=== PATIENT | male | born 1990 | race Caucasian/White ===

== ENCOUNTER → 2020-03-01 13:27 | Outpatient (BNVA) | payer SELFPAY | PROVIDERS: Family Provider Family Medicine; PCP Family Medicine; Visit Provider Nurse Practitioner | DX: J02.9 Acute pharyngitis, unspecified (principal) | CPT/HCPCS: 87071; 87880 ==

== ENCOUNTER 2020-03-14 14:24 | Emergency (ER) | payer SELFPAY ==
[2020-03-14 14:48] VITALS: BP 144/84; PULSE 96; RESP 18; TEMP 36.5; O2SAT 98; BMI 33.3
--- NOTE | 2020-03-14 15:26 | ED_ITS ---
HPI - Allergic Reaction General: Chief complaint: Allergic Reaction Stated complaint: allergic rxn Time Seen by Provider: 03/14/20 15:02 History of Present Illness: HPI narrative: Patient had a possible gas on his right arm he does not remember anything but he looked down he said he can had a bite later and then he said he thought his tongue started swelling if the arm felt numb now is doing fine took a Benadryl has no problems MD complaint: other (Insect bite) Onset (ago): hour(s) Exposure: insect bite Associated symptoms: Reports tongue swelling and other (Numbness right arm where the bite was); Deny abdominal pain, nausea or vomiting Severity: mild Treatment prior to arrival: benadryl Review of Systems Narrative: Patient had history of allergic reaction to wasp tingling is located. He thought maybe got stung again today even though he did not feel anything. Said after he noticed a red spot on his arm he thought his tongue started to swell and that his right arm was feel numb he took a Benadryl he said he is feeling fine now Const: Denies: fever(s), chills or body aches Eyes: Denies: change in vision or blurry vision ENMT: Denies: throat pain or nasal congestion Card: Denies: chest pain or dyspnea on exertion Resp: Denies: dyspnea, productive cough or non-productive cough GI: Denies: abdominal pain, nausea or vomiting : Denies: difficulty urinating Musc: Denies: extremity pain Skin/Breast: Denies: rash Neuro: Denies: headache(s) Psych: Denies: anxiety or depression Jaspal/Lymph: Denies: easy bruising All/Imm: Reports: tongue swelling [facility] ED PFSH: Social History Smoking and tobacco status: current every day smoker Alcohol intake: never Physical Exam Const: COMMON NORMALS: no acute distress, average body habitus and patient oriented x3 HENMT: COMMON NORMALS: normocephalic HEAD & SCALP: normal to inspection and normocephalic FACE & SINUS: normal facial exam Eye: COMMON NORMALS: conjunctivae normal GENERAL EYE: appearance normal, both eyes and all related structures CONJUNCTIVA: Yes conjunctivae normal Neck/C-Spine: COMMON NORMALS: no JVD Chest: COMMONS NORMALS: normal inspection of the chest Resp: COMMON NORMALS: normal respiratory effort and clear to auscultation bilaterally AUSCULTATION: clear to auscultation bilaterally Cardio: COMMON NORMALS: no JVD, regular rate and regular rhythm RATE: regular rate RHYTHM: regular rhythm GI: COMMON NORMALS: Normal to inspection, nondistended, normoactive bowel sounds present Extremity: COMMON NORMALS: normal to inspection and full ROM Neuro: COMMON NORMALS: patient oriented x3 Skin: NARRATIVE SKIN EXAM: Small red area to his right forearm distal aspect anterior and does not appear to need be anything more than a possible bite Course Vital Signs: Vital signs: Vital Signs Temperature 97.7 F 03/14/20 14:48 Pulse Rate 96 03/14/20 14:48 Respiratory Rate 18 03/14/20 14:48 Blood Pressure 144/84 03/14/20 14:48 Pulse Oximetry 98 03/14/20 14:48 Discharge Plan Discharge Patient Disposition: Home Clinical Impression: Accidental insect sting Condition: Stable Prescriptions: No Action cyclobenzaprine 10 mg tablet 10 mg PO .PRN RF: 0 amoxicillin 500 mg capsule 1,000 mg PO BID 7 Days Qty: 28 RF: 0 Discharge Orders: Discharge Order (Routine); Ordered 03/14/20 Ordered By: Stephan Danielson Referrals: Ora Diaz DO [Primary Care Provider] - Discharge Diet: Usual diet Discharge Activity: Resume usual activity Patient Instructions: Insect Bite or Sting (ED) Activity Restrictions/Additional Instructions: Follow-up with your family medical provider as needed. Can take Benadryl as needed. Discharge Date/Time: 03/14/20 16:24 Coding Level of Care Code ED Tugboat Dispatcher for Chg Fwd Exam Comprehensive
== END 2020-03-14 16:24 | disposition home or self-care (01) ==
PROVIDERS: Emergency Provider Nurse Practitioner Family; Family Provider Family Medicine; PCP Family Medicine
DX: T63.481A Toxic effect of venom of other arthropod, accidental (unintentional), initial encounter (principal); F17.210 Nicotine dependence, cigarettes, uncomplicated
CPT/HCPCS: 12345; 99281

== ENCOUNTER → 2020-07-10 09:57 | Outpatient (BNVA) | payer SELFPAY | PROVIDERS: Family Provider Family Medicine; PCP Family Medicine; Visit Provider Nurse Practitioner Family | DX: R19.8 Other specified symptoms and signs involving the digestive system and abdomen (principal) | CPT/HCPCS: 87070; 87075; 87077; 87184; 87205 ==

== ENCOUNTER 2021-06-23 19:32 | Emergency (ER) | payer SELFPAY ==
[2021-06-23 19:38] VITALS: BP 134/89; PULSE 68; RESP 18; TEMP 37.1; O2SAT 99; BMI 30.4
--- NOTE | 2021-06-23 19:46 | CTR_ITS ---
PROCEDURE INFORMATION: Exam: CT Abdomen And Pelvis With Contrast Exam date and time: 06/23/2021 7:46 PM Age: 31 years old Clinical indication: Nausea and vomiting and other: Black tarry stool; Abdominal pain; Patient HX: HX of colon and testicular CA; Additional info: Abd pain TECHNIQUE: Imaging protocol: Computed tomography of the abdomen and pelvis with contrast. Radiation optimization: All CT scans at this facility use at least one of these dose optimization techniques: automated exposure control; mA and/or kV adjustment per patient size (includes targeted exams where dose is matched to clinical indication); or iterative reconstruction. Contrast material: OMNI 300; Contrast volume: 95 ml; Contrast route: INTRAVENOUS (IV); COMPARISON: No relevant prior studies available. RADIATION DOSE METRICS: Total DLP (mGy-cm): 2022.16 FINDINGS: Liver: Focal fatty infiltration in the left liver lobe. No follow-up imaging is recommended. Gallbladder and bile ducts: Normal. No calcified stones. No ductal dilation. Pancreas: Normal. No ductal dilation. Spleen: The spleen is normal with a small splenule. Adrenal glands: Normal. No mass. Kidneys and ureters: 2 mm nonobstructing left renal calculus. Small hypodensity in the central left kidney is too small to characterize but is most likely a cyst. No follow-up imaging is recommended. No hydronephrosis. Stomach and bowel: Unremarkable. No obstruction. No mucosal thickening. Appendix: The appendix is visualized and is normal. Intraperitoneal space: Unremarkable. No free air. No significant fluid collection. Vasculature: Unremarkable. No abdominal aortic aneurysm. Lymph nodes: Unremarkable. No enlarged lymph nodes. Urinary bladder: Unremarkable as visualized. Reproductive: Unremarkable as visualized. Bones/joints: Unremarkable. No acute fracture. Soft tissues: Unremarkable. CT/CT abdomen pelvis w con* [id number] IMPRESSION: 1. No acute abnormality identified in the abdomen or pelvis. 2. 2 mm nonobstructing left renal calculus. COMMENTS: Consistent with the [employer]'s Incidental Findings Committee white paper (J Am Marisol Radiol 2018): Any incidental renal lesion less than 1 cm or classified as too small to characterize, or any incidental cystic renal lesion characterized as simple-appearing, is likely benign. No follow-up imaging is recommended for these lesions per consensus recommendations based on imaging criteria.
--- NOTE | 2021-06-23 19:57 | ED_ITS ---
HPI - Abdominal Pain General: Chief Complaint: Abdominal Pain Stated Complaint: ABD PAIN Time Seen by Provider: 06/23/21 19:38 Source: patient and EMS Mode of arrival: EMS Limitations: no limitations History of Present Illness: HPI narrative: 31-year-old male history of colon cancer in remission for 3 years states today started having severe abdominal pain had a bloody bowel movement that was dark with some bright red blood as well. States his pain is diffuse and rates it a 8 out of 10 denies any worsening improving factors denies any vomiting denies any fevers. Associated Symptoms: Reports hematochezia and melena; Denies chills, dysuria and fever(s) Review of Systems Const: Denies: fever(s), chills, body aches or change in appetite Eyes: Denies: blurry vision or eye discomfort ENMT: Denies: throat pain or dental pain Card: Denies: chest pain Resp: Denies: dyspnea GI: Reports: abdominal pain, hematochezia and melena : Denies: dysuria Musc: Denies: neck pain or back pain Skin/Breast: Denies: rash Neuro: Denies: headache(s) Psych: Denies: depression Jaspal/Lymph: Denies: easy bruising All/Imm: Denies: urticaria PFSH ED PFSH: Medical History Psychiatric care Social History Smoking and tobacco status: current every day smoker cigarettes Packs smoked per day: 0.5 Years cigarettes smoked: 18 and e-cigarettes Quit status (tobacco): has tried quititng Number of times tried to quit tobacco: 3 Second hand smoke exposure: No Alcohol intake: never Lives independently: No Household members: significant other and family Marital status: Life Partner Current occupational status: unemployed History of recent travel: No Current gender identity: Male Physical Exam Const: COMMON NORMALS: no acute distress, patient oriented x3 and healthy appearing HENMT: COMMON NORMALS: normocephalic and atraumatic HEAD & SCALP: normocephalic and atraumatic Eye: COMMON NORMALS: Equal, round and reactive pupils present and EOMs intact bilaterally PUPIL: Yes Equal, round and reactive pupils present Neck/C-Spine: COMMON NORMALS: full ROM and supple Chest: COMMONS NORMALS: normal inspection of the chest and normal palpation of entire chest wall Resp: COMMON NORMALS: normal respiratory effort, No retractions, No use of accessory muscles and clear to auscultation bilaterally AUSCULTATION: clear to auscultation bilaterally Cardio: COMMON NORMALS: regular rate, regular rhythm and No murmurs present (Cardio) RATE: regular rate RHYTHM: regular rhythm GI: COMMON NORMALS: Normal to inspection, nondistended, normoactive bowel sounds present, Soft to palpation and no masses PALPATION: Yes Soft to palpation OTHER: diffuse tenderness Extremity: COMMON NORMALS: normal to inspection and full ROM Neuro: COMMON NORMALS: patient oriented x3, moves all extremities and no focal motor deficits Psych: COMMON NORMALS: mental status grossly normal, Normal thought process present and cooperative THOUGHT PROCESS: Normal thought process present Skin: COMMON NORMALS: no rashes or lesions noted and no wounds GENERAL SKIN EXAM: no rashes or lesions noted Course Vital Signs: Vital signs: Vital Signs Temperature 98.7 F 06/23/21 19:38 Pulse Rate 64 06/23/21 21:42 Respiratory Rate 18 06/23/21 21:42 Blood Pressure 110/57 06/23/21 21:42 Pulse Oximetry 98 06/23/21 21:42 MDM - Abdominal Pain MDM Narrative: Medical decision making narrative: Patient presents with abdominal pain also concern of possible blood in the stool rectal exam here was negative brown Hemoccult negative blood work CT scan are all normal he feels much improved on exam at discharge benign we will get him follow-up with surgery he is to return if worsening he understands agrees to plan. Lab Data: Labs: Lab Results 06/23/21 06/23/21 06/23/21 20:16 20:16 20:16 WBC 12.8 10^3/uL H 10 ^3/uL (4.0-10.0) RBC 4.87 10^6/uL 10^6 /uL (4.1-5.3) Hgb 15.3 g/dL g/dL (11.7-16.6) Hct 43.3 % % (42.0-52.0) MCV 88.9 fl fl (80-94) MCH 31.4 pg pg (28.0-34.0) MCHC 35.3 g/dL g/dL (30.0-36.0) RDW 12.6 % % (12.1-15.1) Plt Count 285 10^3/cmm 10^3 /cmm (130-400) MPV 10.3 fL fL (7.4-10.4) Neut % (Auto) 78.0 % % Lymph % (Auto) 15.7 % % Nance % (Auto) 4.7 % % Eos % (Auto) 0.7 % % Baso % (Auto) 0.5 % % Neut # (Auto) 10.02 10^3/uL H 1 0^3/uL (1.8-7.7) Lymph # (Auto) 2.0 10^3/uL 10^3/ uL (0.8-4.8) Nance # (Auto) 0.6 10^3/uL 10^3/ uL (0.2-0.9) Eos # (Auto) 0.1 10^3/uL 10^3/ uL (0.0-0.8) Baso # (Auto) 0.1 10^3/uL 10^3/ uL (0.0-0.1) Nucleated RBC % (a uto) 0 % % Nucleated RBCs # 0.0 /100WBC /100W BC PT 13.80 SECONDS SEC ONDS (12.1-14.9) INR 1.02 (0.8-1.2) Sodium 136 mmol/L mmol/L (136-145) Potassium 3.4 mmol/L L mmol /L (3.5-5.1) Chloride 102 mmol/L mmol/L (98-107) Carbon Dioxide 19 mmol/L L mmol/ L (22-29) Anion Gap 18.4 (5-19) BUN 10 mg/dL mg/dL (6-20) Creatinine 0.8 mg/dL mg/dL (0.7-1.2) GFR Calculation 113.5 mL/min mL/m in (90-130) Glucose 80 mg/dL mg/dL (65-115) Calculated Osmolal ity 280 mOsm/kg L mOs m/kg (285-295) Calcium 8.9 mg/dL mg/dL (8.5-10.5) Total Bilirubin 0.5 mg/dL mg/dL (0.15-1.2) AST 17 U/L U/L (0-40) ALT 26 U/L U/L (0-41) Alkaline Phosphata se 110 IU/L IU/L (40-130) Total Protein 7.9 g/dL g/dL (6.6-8.7) Albumin 4.7 g/dL g/dL (3.5-5.2) Globulin 3.2 g/dL g/dL (1.3-4.6) Lipase 18 U/L U/L (13-60) Imaging Data ^: CT Abd/Pel: Attestation: I personally reviewed and interpreted this imaging study as follows: Radiologist's impression: [employer] [place] [address] CT Scan Report Signed Patient: Krunal Miller Unit #: [id number] : 1990 Age/Sex: 31 / M ADM Date: 06/23/21 Loc: ER Room/Bed: Attending Dr: Ordering Provider/Ordering MD: Barrett Castellanos MD Date of Service: 06/23/21 Procedure(s): CT abdomen pelvis w con* [id number] Accession Number(s): [id number] Report Number: [id number] PROCEDURE INFORMATION: Exam: CT Abdomen And Pelvis With Contrast Exam date and time: 06/23/2021 7:46 PM Age: 31 years old Clinical indication: Nausea and vomiting and other: Black tarry stool; Abdominal pain; Patient HX: HX of colon and testicular CA; Additional info: Abd pain TECHNIQUE: Imaging protocol: Computed tomography of the abdomen and pelvis with contrast. Radiation optimization: All CT scans at this facility use at least one of these dose optimization techniques: automated exposure control; mA and/or kV adjustment per patient size (includes targeted exams where dose is matched to clinical indication); or iterative reconstruction. Contrast material: OMNI 300; Contrast volume: 95 ml; Contrast route: INTRAVENOUS (IV); COMPARISON: No relevant prior studies available. RADIATION DOSE METRICS: Total DLP (mGy-cm): FINDINGS: Liver: Focal fatty infiltration in the left liver lobe. No follow-up imaging is recommended. Gallbladder and bile ducts: Normal. No calcified stones. No ductal dilation. Pancreas: Normal. No ductal dilation. Spleen: The spleen is normal with a small splenule. Adrenal glands: Normal. No mass. Kidneys and ureters: 2 mm nonobstructing left renal calculus. Small hypodensity in the central left kidney is too small to characterize but is most likely a cyst. No follow-up imaging is recommended. No hydronephrosis. Stomach and bowel: Unremarkable. No obstruction. No mucosal thickening. Appendix: The appendix is visualized and is normal. Intraperitoneal space: Unremarkable. No free air. No significant fluid collection. Vasculature: Unremarkable. No abdominal aortic aneurysm. Lymph nodes: Unremarkable. No enlarged lymph nodes. Urinary bladder: Unremarkable as visualized. Reproductive: Unremarkable as visualized. Bones/joints: Unremarkable. No acute fracture. Soft tissues: Unremarkable. CT/CT abdomen pelvis w con* [id number] IMPRESSION: 1. No acute abnormality identified in the abdomen or pelvis. 2. 2 mm nonobstructing left renal calculus. COMMENTS: Consistent with the [place] [employer]'s Incidental Findings Committee white paper (J Am Marisol Radiol 2018): Any incidental renal lesion less than 1 cm or classified as too small to characterize, or any incidental cystic renal lesion characterized as simple-appearing, is likely benign. No follow-up imaging is recommended for these lesions per consensus recommendations based on imaging criteria. Dictated By: Chris Newberry Signed By: Chris Newberry Signed Date/Time: 06/23/212147 DD/ 45 Discharge Plan Discharge Patient Disposition: Home Clinical Impression: Abdominal pain Condition: Stable Prescriptions: New hydrocodone-acetaminophen 5-325 mg tablet 1 tab PO Q6H PRN (Reason: pain) Qty: 14 RF: 0 ondansetron 4 mg tablet,disintegrating 4 mg PO Q6H PRN (Reason: nausea and vomiting) Qty: 14 RF: 0 No Action acetaminophen [Tylenol] 325 mg capsule 325 mg PO QID PRNRF: 0 naproxen 250 mg tablet 250 mg PO BID PRNRF: 0 loratadine [Claritin] 10 mg tablet 10 mg PO DAILY RF: 0 trazodone 50 mg tablet 100 mg PO .HS PRN (Reason: insomnia) Qty: 60 RF: 1 fluoxetine [Prozac] 20 mg capsule 20 mg PO DAILY Qty: 30 RF: 1 Discharge Orders: Discharge ED (Routine); Ordered 06/23/21 Ordered By: Barrett Castellanos Referrals: Shalom Amin MD [Physician] - 1-3 days Discharge Diet: Advance as tolerated Discharge Activity: Resume usual activity Patient Instructions: Abdominal Pain (ED), Opioid Safety (ED) Coding Level of Care Code ED Software Recruiter for Chg Fwd Exam Comprehensive
[2021-06-23 19:59] VITALS: RESP 19; O2SAT 98
[2021-06-23] MEDS: sodium chloride 0.9% 1,000 ML 999 ML IV (19:59)
[2021-06-23] MEDS: ondansetron 2 mg/ML SDV 2 mL 4 MG IVP (19:59)
[2021-06-23] MEDS: HYDROmorphone 1 mg/mL INJ 1 mL IVP (19:59)
[2021-06-23 20:27] LABS: Basophils # 0.1 10^3/uL (0.0-0.1); Basophils % 0.5 %; Eosinophils # 0.1 10^3/uL (0.0-0.8); Eosinophils % 0.7 %; Hematocrit 43.3 % (42.0-52.0); Hemoglobin 15.3 g/dL (11.7-16.6); Lymphocytes % 15.7 %; Mean Corpuscular HGB Conc 35.3 g/dL (30.0-36.0); Mean Corpuscular Hemoglobin 31.4 pg (28.0-34.0); Mean Corpuscular Volume 88.9 fl (80-94); Mean Platelet Volume 10.3 fL (7.4-10.4); Monocytes # 0.6 10^3/uL (0.2-0.9); Monocytes % 4.7 %; Neutrophils # 10.02 10^3/uL (1.8-7.7); Nucleated Red Blood Cells % 0 %; Platelet Count 285 10^3/cmm (130-400); Red Blood Count 4.87 10^6/uL (4.1-5.3); Red Cell Distribution Width 12.6 % (12.1-15.1); White Blood Count 12.8 10^3/uL (4.0-10.0)
[2021-06-23] MEDS: iohexol 300 mg/mL 100 mL Btl IV (20:36)
[2021-06-23 20:37] LABS: INR 1.02 (0.8-1.2)
[2021-06-23 20:48] LABS: Alanine Aminotransferase 26 U/L (0-41); Albumin Level 4.7 g/dL (3.5-5.2); Alkaline Phosphatase 110 IU/L (40-130); Anion Gap 18.4 (5-19); Aspartate Amino Transferase 17 U/L (0-40); Blood Urea Nitrogen 10 mg/dL (6-20); Calcium 8.9 mg/dL (8.5-10.5); Carbon Dioxide 19 mmol/L (22-29); Chloride 102 mmol/L (98-107); Globulin 3.2 g/dL (1.3-4.6); Glomerular Filtration Rate 113.5 mL/min (90-130); Glucose 80 mg/dL (65-115); Lipase 18 U/L (13-60); Osmolality Calculated 280 mOsm/kg (285-295); Potassium 3.4 mmol/L (3.5-5.1); Sodium 136 mmol/L (136-145); Total Bilirubin 0.5 mg/dL (0.15-1.2); Total Protein 7.9 g/dL (6.6-8.7)
[2021-06-23 21:42] VITALS: BP 110/57; PULSE 64; RESP 18; O2SAT 98
--- NOTE | 2021-06-24 09:55 | DCPLANNER ---
Addendum entered by Louise Fox 07/08/21 08:02: Clinic contacted complex case manager stating that when clinic called patient to schedule a follow up appointment that patient declined appointment at this time due to moving to [place]. Original Note: manager of quality had message to schedule a follow up appointment for patient with general surgery. manager of quality emailed patients information to both Kathe and Brissa at [facility] General Surgery / ENT clinic. Patients information will be printed and reviewed, clinic will call patient with appointment information.
== END 2021-06-23 22:05 | disposition home or self-care (01) ==
PROVIDERS: Emergency Provider Emergency Medicine
DX: R10.9 Unspecified abdominal pain (principal); F17.210 Nicotine dependence, cigarettes, uncomplicated; Z85.038 Personal history of other malignant neoplasm of large intestine
CPT/HCPCS: 74177; 80053; 83690; 85025; 85610; 86850; 86900; 96361; 96374; 96375; 99284; J1170; J2405; J7030; Q9967

== ENCOUNTER 2021-06-24 08:41 | Emergency (ER) | payer SELFPAY ==
--- NOTE | 2021-06-24 08:45 | W.ED.PSYCHS ---
HPI - Psych General: Chief Complaint: Psychiatric Symptoms Stated Complaint: PSYCH EVAL Time Seen by Provider: 06/24/21 08:43 Source: patient and EMS Mode of arrival: EMS Limitations: no limitations History of Present Illness: HPI Narrative: Patient is a 31-year-old male who presents to ED today via EMS stating that he is only here to get out of her particular situation. Patient was seen in our ED late yesterday evening/early this morning for complaints of abdominal pain. He was discharged home. Patient states he did not have a ride home so ended up calling his ex-girlfriend for a ride. He states when she arrived her new male friend was in the vehicle with her. He states that both of them badgering him to the point where he made a statement would it be better if I just blew my brains out? . Patient states he is not suicidal or homicidal. He states that he called EMS to bring him to the ED because he needed to get out of that particular situation. He states he has a friend here in town that he can stay with. complaint: other Onset (ago): minute(s) Exacerbating factors: other (stress) Associated symptoms: Deny auditory hallucinations, visual hallucinations, homicidal ideation or suicidal ideation Treatments prior to arrival: none Review of Systems Psych: Reports: anxiety; Denies: hopelessness, loss of interest, paranoia, difficulty concentrating, visual hallucinations, auditory hallucinations, suicidal ideation or homicidal ideation [facility] ED PFSH: Medical History Psychiatric care Social History Smoking and tobacco status: current every day smoker cigarettes Packs smoked per day: 0.5 Years cigarettes smoked: 18 and e-cigarettes Quit status (tobacco): has tried quititng Number of times tried to quit tobacco: 3 Second hand smoke exposure: No Alcohol intake: never Lives independently: No Household members: significant other and family Marital status: Life Partner Current occupational status: unemployed History of recent travel: No Current gender identity: Male Physical Exam Const: COMMON NORMALS: no acute distress, average body habitus, patient oriented x3, no limitations, healthy appearing, alert and well nourished GENERAL APPEARANCE: cooperative ORIENTATION/CONSCIOUSNESS: Yes awake, Yes oriented to person, Yes oriented to place and Yes oriented to time Neuro: PANCHITO COMA SCALE: document GCS findings Panchito coma scale eye opening: Spontaneous Panchito coma scale verbal response: Orientated Panchito coma scale motor response: Obey commands Panchito coma scale total score: 15 COMMON NORMALS: patient oriented x3, CN's II-XII intact bilaterally, moves all extremities, no focal motor deficits, no sensory deficits noted and gait normal SENSORIUM/ORIENTATION: Yes alert, Yes oriented to person, Yes oriented to place and Yes oriented to time Psych: COMMON NORMALS: mental status grossly normal, Normal thought process present, cooperative, normal affect, speech normal, activity/motor behavior normal, denies hallucinations, denies homicidal ideation and denies suicidal ideation APPEARANCE: Yes grossly normal ATTITUDE: Yes calm ACTIVITY/MOTOR BEHAVIOR: Yes appropriate eye contact SPEECH: Yes normal speech MOOD & AFFECT: Yes euthymic mood THOUGHT PROCESS: Normal thought process present THOUGHT CONTENT: Yes Normal thought content present ATTENTION/CONCENTRATION: Yes attention grossly intact and Yes concentration grossly intact MEMORY/COGNITION: Yes memory grossly intact INSIGHT: Good insight present (Psych) JUDGEMENT: Good judgement present (Psych) Skin: COMMON NORMALS: no rashes or lesions noted GENERAL SKIN EXAM: no rashes or lesions noted Course Consultations: Consultation #1: Dr. Mckee-will come evaluate patient in ED Vital Signs: Vital signs: Vital Signs Temperature 98.5 F 06/24/21 08:46 Pulse Rate 77 06/24/21 09:30 Respiratory Rate 19 H 06/24/21 09:30 Blood Pressure 125/80 06/24/21 09:30 Pulse Oximetry 97 06/24/21 09:30 MDM - Psych MDM Narrative: Medical decision making narrative: Patient denies suicidal or homicidal ideations but because of previous statements made I did contact Dr. Mckee who was graciously willing to come and evaluate patient from the ED. Please see his note for specific psychiatric assessment. Psychiatry has cleared patient and he is stable for discharge at this time. Discharge Plan Discharge Patient Disposition: Home Clinical Impression: No suicidal thoughts Condition: Stable Prescriptions: No Action acetaminophen [Tylenol] 325 mg capsule 325 mg PO QID PRNRF: 0 naproxen 250 mg tablet 250 mg PO BID PRNRF: 0 loratadine [Claritin] 10 mg tablet 10 mg PO DAILY RF: 0 trazodone 50 mg tablet 100 mg PO .HS PRN (Reason: insomnia) Qty: 60 RF: 1 fluoxetine [Prozac] 20 mg capsule 20 mg PO DAILY Qty: 30 RF: 1 hydrocodone-acetaminophen 5-325 mg tablet 1 tab PO Q6H PRN (Reason: pain) Qty: 14 RF: 0 ondansetron 4 mg tablet,disintegrating 4 mg PO Q6H PRN (Reason: nausea and vomiting) Qty: 14 RF: 0 Discharge Orders: Discharge ED (Routine); Ordered 06/24/21 Ordered By: Dimple Elizondo Activity Restrictions/Additional Instructions: As we have discussed you have been cleared from a psychiatric standpoint and are stable for discharge from the emergency department. You need to contact 911 or return to the ED immediately if you begin having thoughts of wanting to harm yourself or others. Coding Level of Care Code ED Open Hearth Furnace Operator Helper for Mihir Fwhayden Exam Expanded Problem Focused
[2021-06-24 08:46] VITALS: BP 125/80; PULSE 77; RESP 19; TEMP 36.9; O2SAT 97; BMI 30.4
[2021-06-24 09:30] VITALS: BP 125/80; PULSE 77; RESP 19; O2SAT 97
--- NOTE | 2021-06-24 09:41 | PC.NURSE ---
NURSE SPOKE WITH PROVIDER. NURSE VERIFIED PSYCH PROTCOL WITH PROVIDER. PROVIDER STATES THAT PATIENT IS NOT CURRENTLY SI/HI SO HE DOES REQUIRE A SITTER OR PAPER SCRUBS. PATIENT RESTING IN ROOM, CALL LIGHT WITHIN REACH.
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
[2021-06-24 10:01] VITALS: PULSE 75; RESP 16; O2SAT 98
== END 2021-06-24 10:02 | disposition home or self-care (01) ==
PROVIDERS: Emergency Provider Physician Assistant
DX: Z60.8 Other problems related to social environment (principal); F17.210 Nicotine dependence, cigarettes, uncomplicated
CPT/HCPCS: 99282